=== PATIENT | female | born 1985 | race African-American/Black ===

== ENCOUNTER 2021-12-30 15:46 | Inpatient (IN) | payer OTHER ==
[~2021-12-30] VITALS: Ht 165.1 cm; Wt 103.8 kg
[2021-12-30] MEDS ORDERED: LACTATED RINGER'S 1000 ML IV ONE (17:05)
[2021-12-30] MEDS ORDERED: METHYLERGONOVINE MALEATE 0.2 MG/ML VIAL (J2210) IM PRN (17:05)
[2021-12-30] MEDS ORDERED: OXYTOCIN DRIP 30 UNITS in IV 1 EA IV PRN ×4 (17:05)
[2021-12-30] MEDS ORDERED: OXYTOCIN INJ 10 UNITS/ML VIAL (J2590) IV PRN (17:05)
[2021-12-30] MEDS ORDERED: TRANEXAMIC ACID INJection 1,000 MG in NS 100 ML IV PRN (17:05)
[2021-12-30] MEDS ORDERED: miSOPROStol 50MCG 1/2 TABLET PO ONE ×2 (17:05→22:30)
[2021-12-30] MEDS ORDERED: ASPI81CH33 PO (17:27)
[2021-12-30] MEDS ORDERED: ACET-897 PO (17:27)
[2021-12-30] MEDS ORDERED: HOME MED LIST COMPLETE! XX SCH (17:35)
[2021-12-30 18:09] VITALS: BP 112/56
[2021-12-30] MEDS ORDERED: CALCIUM CARBONATE 500 MG CHEW U/D PO PRN (18:10)
[2021-12-30 18:21] LABS: HEMATOCRIT 35.9 % (36.0-47.0); HEMOGLOBIN 12.7 g/dl (12.0-15.5); MEAN CORPUSCULAR HEMOGLOBIN 32.7 pg (27.0-33.0); MEAN CORPUSCULAR HGB CONC 35.4 g/dl (32.0-36.5); MEAN CORPUSCULAR VOLUME 92.5 fl (80.0-96.0); PLATELET COUNT, AUTOMATED 268 10^3/uL (150-450); RED BLOOD COUNT 3.88 10^6/uL (4.00-5.40); WHITE BLOOD COUNT 9.3 10^3/uL (4.0-10.0)
[2021-12-30 21:05] VITALS: BP 151/70
[2021-12-30 21:06] VITALS: BP 134/63
[2021-12-30 22:35] VITALS: BP 119/58
[2021-12-31] VITALS (35 sets, daily range): BP systolic 102–156; BP diastolic 54–87
[2021-12-31] MEDS: LR 1,000 ML IV SCH ×3 (01:05→17:54)
[2021-12-31] MEDS ORDERED: diphenhydrAMINE 25MG CAP PO ONE (02:00)
[2021-12-31] MEDS ORDERED: miSOPROStol 50MCG 1/2 TABLET PO ONE (07:00)
[2021-12-31] MEDS ORDERED: FENTANYL 2MCG/ML ROPIVACAINE 0.2% IN 0.9% NACL 100ML IVBAG As Ordered ONE (14:21)
[2021-12-31] MEDS ORDERED: diphenhydrAMINE 50MG/ML VIAL (J1200) IV PRN (16:10)
[2021-12-31] MEDS ORDERED: EPIDURAL COMMENT XX SCH (16:10)
[2021-12-31] MEDS ORDERED: FENTANYL/ROPIVACAINE/NACL BAG 100 ML EPIDURAL SCH (16:10)
[2021-12-31] MEDS ORDERED: EPIDURAL/PCA KEYS XX PRN (16:10)
[2021-12-31] MEDS ORDERED: ONDANSETRON 4MG/2ML VIAL IV PRN (16:10)
[2021-12-31] MEDS ORDERED: LACTATED RINGER'S 1000 ML IV PRN (16:10)
[2021-12-31] MEDS ORDERED: NALOXONE INJ 0.4MG/1ML VIAL (J2310 PER 1MG) IV PRN (16:10)
[2021-12-31] MEDS ORDERED: ePHEDrine SULFATE 25 MG/5 ML(5MG/ML) SYRINGE IV PRN (16:10)
[2021-12-31] MEDS ORDERED: REFRIGERATOR IV KEYS XX PRN (16:10)
[2021-12-31] MEDS ORDERED: OXYTOCIN DRIP 30 UNITS in IV 1 EA IV SCH (17:45)
[2021-12-31] MEDS ORDERED: REFLB XX ONE (22:37)
[2021-12-31] MEDS ORDERED: ACETAMINOPHEN TAB 650MG DOSE (2X325MG) PO PRN (23:20)
[2021-12-31] MEDS ORDERED: DOCUSATE SODIUM 100MG CAPSULE PO PRN (23:20)
[2021-12-31] MEDS ORDERED: METHYLERGONOVINE MALEATE 0.2 MG TAB PO PRN (23:20)
[2021-12-31] MEDS ORDERED: MEASLES,MUMPS,RUBELLA VACCINE INJ (MMR-II) (90707) SC SCH (23:20)
[2021-12-31] MEDS ORDERED: DIBUCAINE 1% OINTMENT 30GM TOP PRN (23:20)
[2021-12-31] MEDS ORDERED: RHOGAM 300 MCG (1500 IU) INJ (J2790) IM SCH (23:20)
[2022-01-01] MEDS ORDERED: OXYTOCIN INJ 10 UNITS/ML VIAL (J2590) IM ONE
[2022-01-01 01:13] VITALS: BP 126/69
[2022-01-01 05:50] VITALS: BP 138/79
[2022-01-01] MEDS: PRENATAL VITAMINS CHEWABLE TABLET PO SCH (07:37)
[2022-01-01 18:11] VITALS: BP 143/73
[2022-01-02 06:00] VITALS: BP 124/61
[2022-01-02] MEDS ORDERED: DIBU28OI2 TOP (06:34)
[2022-01-02] MEDS: PRENATAL VITAMINS CHEWABLE TABLET PO SCH (09:03)
== END 2022-01-02 12:30 | disposition home or self-care (01) | DRG 807 ==
LOC: M LDI 15:46 → M OBS 01-01 00:44
PROVIDERS: ADMIT Obstetrics & Gynecology; ATTEND Registered Nurse
PROC: 3E0P7GC Introduction of Other Therapeutic Substance into Female Reproductive, Via Natural or Artificial Opening (ICD-10-PCS; 2021-12-30)
PROC: 10E0XZZ Delivery of Products of Conception, External Approach (ICD-10-PCS; principal; 2021-12-31)
DX: O10.02 Pre-existing essential hypertension complicating childbirth (principal); Z37.0 Single live birth; Z3A.39 39 weeks gestation of pregnancy

== ENCOUNTER 2023-08-26 06:46 | Emergency (ER) | payer OTHER ==
[~2023-08-26] VITALS: Ht 165.1 cm; Wt 89.0 kg
[~2023-08-26 06:46] MED LIST: ACET-897 PO; ASPI81CH33 PO; DIBU28OI2 TOP
[2023-08-26 08:27] VITALS: BP 141/84; TEMP 97.7; O2SAT 98
== END 2023-08-26 08:46 | disposition home or self-care (01) ==
LOC: M ED 06:46
DX: S60.921A Unspecified superficial injury of right hand, initial encounter (principal); W01.0XXA Fall on same level from slipping, tripping and stumbling without subsequent striking against object, initial encounter; Y92.9 Unspecified place or not applicable; Y93.66 Activity, soccer; Y99.9 Unspecified external cause status; Z79.82 Long term (current) use of aspirin; Z79.899 Other long term (current) drug therapy